=== PATIENT | male | born 1985 | race Caucasian/White ===

== ENCOUNTER 2017-06-27 16:54 | Emergency (ER) | payer OTHER ==
[~2017-06-27] VITALS: Ht 180.3 cm; Wt 90.7 kg
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
--- NOTE | 2017-06-27 17:39 | RAD ---
Wrist x-rays Indication: Fall. Technique: 3 views of the right breast Comparison: None Findings: No acute fracture or dislocation. No soft tissue abnormality. Impression: As above.
--- NOTE | 2017-06-27 17:41 | RAD ---
Elbow x-rays Indication: Trauma Technique: 3 views of the right elbow Comparison: None Findings: There is a lucency through the radial head extending to the articular surface. Small elbow joint effusion. Impression: Nondisplaced radial head fracture with small elbow joint effusion.
[2017-06-27] MEDS ORDERED: HYDR-971 PO (18:14)
[2017-06-27 18:25] VITALS: BP 130/74
== END 2017-06-27 18:25 | disposition home or self-care (01) ==
LOC: ER 16:54
DX: S52.124A Nondisplaced fracture of head of right radius, initial encounter for closed fracture (principal); V28.4XXA Motorcycle driver injured in noncollision transport accident in traffic accident, initial encounter; Y93.55 Activity, bike riding; Y99.8 Other external cause status; Y92.89 Other specified places as the place of occurrence of the external cause
CPT/HCPCS: 29105; 73080; 73110; 99284-25